=== PATIENT | female | born 1980 | race Caucasian/White ===

== ENCOUNTER → 2017-07-30 | Outpatient (CLI) | payer BC ==
[2017-07-30 07:36] LABS: Basophils % (A) 1 %; Eosinophils # (A) 0.1 k/uL (0-0.7); Eosinophils % (A) 2 %; HCT 47.4 % (34.0-46.0); HGB 15.1 gm/dL (11.4-16.0); Lymphocytes # (A) 2.7 k/uL (1.0-4.8); Lymphocytes % (A) 42 %; MCH 29.3 pg (25.0-35.0); MCHC 31.8 g/dL (31.0-37.0); MCV 92.1 fL (80.0-100.0); Mean Platelet Volume 7.8; Monocytes # (A) 0.5 k/uL (0-1.0); Monocytes % (A) 8 %; Neutrophils # (A) 2.9 k/uL (1.3-7.7); Neutrophils % (A) 46 %; Platelet Count 182 k/uL (150-450); RBC 5.14 m/uL (3.80-5.40); RDW 14.8 % (11.5-15.5); WBC 6.3 k/uL (3.8-10.6)
[2017-07-30 07:50] LABS: ALT 26 U/L (9-52); AST 13 U/L (14-36); Albumin 4.4 g/dL (3.5-5.0); Alkaline Phosphatase 39 U/L (38-126); Anion Gap 13 mmol/L; Bilirubin, Delta 0.2 mg/dL (0.0-0.2); Bilirubin,Unconjugated 0.2 mg/dL (0.0-1.1); Blood Urea Nitrogen 10 mg/dL (7-17); Calcium 10.6 mg/dL (8.4-10.2); Carbon Dioxide 24 mmol/L (22-30); Chloride 104 mmol/L (98-107); Cholesterol 232 mg/dL (<200); Glucose 98 mg/dL (74-99); HDL Cholesterol 66 mg/dL (40-60); LDL Cholesterol,Calculated 141 mg/dL (0-99); Potassium 4.3 mmol/L (3.5-5.1); Sodium 141 mmol/L (137-145); Total Bilirubin 0.4 mg/dL (0.2-1.3); Total Protein 7.2 g/dL (6.3-8.2); Triglycerides 127 mg/dL (<150)
== END | disposition home or self-care (01) ==
LOC: LABWHC1 06:40
PROVIDERS: ATTEND Physical Medicine & Rehabilitation
DX: M81.0 Age-related osteoporosis without current pathological fracture (principal); E78.5 Hyperlipidemia, unspecified; R56.9 Unspecified convulsions
CPT/HCPCS: 36415; 80053; 80061; 82248; 82306; 84443; 85025

== ENCOUNTER → 2017-12-26 | Outpatient (CLI) | payer BC ==
--- NOTE | 2017-12-27 14:00 | MM ---
Reason for exam: screening (asymptomatic). Last mammogram was performed 2 years and 1 month ago. History: Patient is nulliparous. Family history of breast cancer in paternal aunt at age 40. Took hormonal contraceptives for 10 years. Physical Findings: A clinical breast exam by your physician is recommended on an annual basis and results should be correlated with mammographic findings. MG Screening Mammo w CAD Bilateral CC and MLO view(s) were taken. Prior study comparison: December 03, 2015, bilateral MG work up mamm w CAD BILAT. November 23, 2015, bilateral MG screening mammo w CAD. The breast tissue is heterogeneously dense. This may lower the sensitivity of mammography. No significant changes when compared with prior studies. ASSESSMENT: Benign, BI-RAD 2 RECOMMENDATION: Routine screening mammogram of both breasts in 1 year.
== END | disposition home or self-care (01) ==
LOC: RADMAMWWP 13:41
PROVIDERS: ATTEND Obstetrics & Gynecology
DX: Z12.31 Encounter for screening mammogram for malignant neoplasm of breast (principal)
CPT/HCPCS: 77067

== ENCOUNTER → 2019-01-31 | Outpatient (CLI) | payer BC ==
--- NOTE | 2019-02-04 13:58 | MM ---
Reason for exam: screening (asymptomatic). Last mammogram was performed 1 year and 1 month ago. History: Patient is postmenopausal and is nulliparous. Family history of breast cancer in paternal aunt at age 40. Took hormonal contraceptives for 10 years. MG Screening Mammo w CAD Bilateral CC and MLO view(s) were taken. Prior study comparison: December 26, 2017, bilateral MG screening mammo w CAD. December 03, 2015, bilateral MG work up mamm w CAD BILAT. There are scattered fibroglandular densities. There is an Architectural distortion in the right breast middle position 7-8 cm from the nipple seen in the MLO view. Finding is new when compared to prior studies. ASSESSMENT: Incomplete: need additional imaging evaluation, BI-RAD 0 RECOMMENDATION: Special view mammogram of the left breast. [facility] will attempt to contact patient to return for supplemental views.
== END | disposition home or self-care (01) ==
LOC: RADMAMWWP 12:17
PROVIDERS: ATTEND Obstetrics & Gynecology
DX: Z12.31 Encounter for screening mammogram for malignant neoplasm of breast (principal); Z80.3 Family history of malignant neoplasm of breast
CPT/HCPCS: 77067

== ENCOUNTER → 2019-02-13 | Outpatient (CLI) | payer BC ==
--- NOTE | 2019-02-13 11:38 | MM ---
Reason for exam: additional evaluation requested from abnormal screening. Last mammogram was performed less than 1 month ago. History: Patient is nulliparous. Family history of breast cancer in paternal aunt at age 40. Took hormonal contraceptives for 10 years. Physical Findings: Nurse did not find any significant physical abnormalities on exam. MG Work Up Mamm w CAD RT LM and spot compression MLO view(s) were taken of the right breast. Prior study comparison: January 31, 2019, bilateral MG screening mammo w CAD. December 26, 2017, bilateral MG screening mammo w CAD. The breast tissue is heterogeneously dense. This may lower the sensitivity of mammography. No distinct lesion persists. These results were verbally communicated with the patient and result sheet given to the patient on 02/13/19. ASSESSMENT: Negative, BI-RAD 1 RECOMMENDATION: Return to routine screening mammogram schedule for both breasts.
== END | disposition home or self-care (01) ==
LOC: RADMAMWWP 10:18
PROVIDERS: ATTEND Obstetrics & Gynecology
DX: R92.8 Other abnormal and inconclusive findings on diagnostic imaging of breast (principal)
CPT/HCPCS: 77065

== ENCOUNTER → 2020-03-16 | Outpatient (CLI) | payer BC ==
--- NOTE | 2020-03-17 10:01 | MM ---
Reason for exam: screening (asymptomatic). Last mammogram was performed 1 year and 1 month ago. History: Patient is nulliparous. Family history of breast cancer in paternal aunt at age 40. Took hormonal contraceptives for 10 years. Physical Findings: A clinical breast exam by your physician is recommended on an annual basis and results should be correlated with mammographic findings. MG Screening Mammo w CAD Bilateral CC and MLO view(s) were taken. Prior study comparison: February 13, 2019, right breast MG work up mamm w CAD RT. January 31, 2019, bilateral MG screening mammo w CAD. The breast tissue is heterogeneously dense. This may lower the sensitivity of mammography. No significant changes when compared with prior studies. ASSESSMENT: Benign, BI-RAD 2 RECOMMENDATION: Routine screening mammogram of both breasts in 1 year.
== END | disposition home or self-care (01) ==
LOC: RADMAMWWP 07:58
PROVIDERS: ATTEND Obstetrics & Gynecology
DX: Z12.31 Encounter for screening mammogram for malignant neoplasm of breast (principal); Z80.3 Family history of malignant neoplasm of breast
CPT/HCPCS: 77067

== ENCOUNTER → 2020-06-25 | Outpatient (CLI) | payer BC ==
--- NOTE | 2020-06-30 11:36 | HM ---
HOLTER MONITOR REPORT A 24 hour DCG report. The patient in her diary did not indicate any symptoms. Predominant rhythm appears to be sinus with a heart rate ranging from 58 to 120 beats per minute with average heart rate of 84 beats per minute. Rare isolated PACs and PVCs were noted. There was a lot of artifact. There was no evidence of any significant bradyarrhythmia noted. FINAL IMPRESSION: Predominant sinus rhythm. No symptoms are reported. Rare PACs and PVCs. No significant tachy or bradyarrhythmia. Unremarkable DCG. MMODL / IJN: [id number] /
== END | disposition home or self-care (01) ==
LOC: RADECHMAIN 12:05
PROVIDERS: ATTEND Family Medicine
DX: I49.1 Atrial premature depolarization (principal); I49.3 Ventricular premature depolarization
CPT/HCPCS: 93225; 93226

== ENCOUNTER → 2021-05-30 | Outpatient (CLI) | payer BC ==
--- NOTE | 2021-05-31 14:17 | MM ---
Reason for exam: screening (asymptomatic). Last mammogram was performed 1 year and 2 months ago. History: Patient is nulliparous. Family history of breast cancer in paternal aunt at age 40. Took hormonal contraceptives for 10 years. Physical Findings: A clinical breast exam by your physician is recommended on an annual basis and results should be correlated with mammographic findings. MG Screening Mammo w CAD Bilateral CC and MLO view(s) were taken. Prior study comparison: March 16, 2020, bilateral MG screening mammo w CAD. February 13, 2019, right breast MG work up mamm w CAD RT. The breast tissue is heterogeneously dense. This may lower the sensitivity of mammography. There is chronic nodularity in the left breast. There is no discrete abnormality. ASSESSMENT: Negative, BI-RAD 1 RECOMMENDATION: Routine screening mammogram of both breasts in 1 year.
== END | disposition home or self-care (01) ==
LOC: RADMAMWWP 10:01
PROVIDERS: ATTEND Obstetrics & Gynecology
DX: Z12.31 Encounter for screening mammogram for malignant neoplasm of breast (principal); Z80.3 Family history of malignant neoplasm of breast
CPT/HCPCS: 77067

== ENCOUNTER 2022-03-18 07:53 | Emergency (ER) | payer BC ==
[2022-03-18 07:59] VITALS: BP 158/100; PULSE 107; RESP 20; TEMP 97.5
--- NOTE | 2022-03-18 08:21 | XR ---
EXAMINATION TYPE: XR hand complete LT DATE OF EXAM: 03/18/2022 8:08 AM INDICATION: Patient age:Female; 41 years old; Reason for study: Injury; COMPARISON: None TECHNIQUE: Frontal, lateral and oblique views of the left hand were obtained. FINDINGS: Normal alignment of the visualized joints. No acute osseous pathology is identified. No e vidence of soft tissue swelling. IMPRESSION: No acute osseous pathology.
--- NOTE | 2022-03-18 08:33 | ED ---
General Adult HPI - General Stated complaint: Lt Hand Injury Time Seen by Provider: 03/18/22 07:55 Source: patient, RN notes reviewed Mode of arrival: ambulatory Limitations: no limitations - History of Present Illness Initial comments: 41-year-old female presents emergency Department chief complaint of left hand injury. Patient states she tripped and fell going up some steps yesterday. Patient has bruising over her fifth digit in the medial aspect of her hand. Patient is right-hand dominant no head injury no loss conscious to complaints. - Related Data Home Medications Medication Instructions Recorded Confirmed Divalproex [Depakote] 500 mg PO AC-BRKFST 12/24/14 07/25/15 Divalproex [Depakote] 750 mg PO HS 12/24/14 07/25/15 Lansoprazole [Prevacid] 15 mg PO DAILY 12/24/14 07/25/15 levETIRAcetam [Keppra] 1,500 mg PO Q12HR 12/24/14 07/25/15 oxyCODONE HCL [OxyIR] 2.5 mg PO Q4H PRN 12/24/14 07/25/15 valACYclovir HCL [Valtrex] 500 mg PO DAILY 12/24/14 07/25/15 ALPRAZolam [Xanax] 0.5 mg PO BID 07/25/15 07/25/15 Albuterol Inhaler [Ventolin Hfa 2 puff INHALATION Q4H PRN 07/25/15 07/25/15 Inhaler] FLUoxetine HCL [PROzac] 20 mg PO DAILY 07/25/15 07/25/15 Lactobacillus Acidophilus 1 tab PO BID 07/25/15 07/25/15 [Acidophilus] Melatonin 6 mg PO HS 07/25/15 07/25/15 Allergies Allergy/AdvReac Type Severity Reaction Status Date / Time amitriptyline Allergy Unknown Verified 03/18/22 07:59 meperidine HCl [From Demerol] Allergy Unknown Verified 03/18/22 07:59 Penicillins Allergy Unknown Verified 03/18/22 07:59 vancomycin Allergy Rash/Hives Verified 03/18/22 07:59 acetaminophen [From Tylenol] AdvReac Unknown Verified 03/18/22 07:59 adhesive tape AdvReac Rash/Hives Verified 03/18/22 07:59 ibuprofen [From Motrin] AdvReac Nausea & Verified 03/18/22 07:59 Vomiting lactose AdvReac Nausea & Verified 03/18/22 07:59 Vomiting & Diarrhea Review of Systems ROS Statement: Those systems with pertinent positive or pertinent negative responses have been documented in the HPI. ROS Other: All systems not noted in ROS Statement are negative. Past Medical History Past Medical History: Asthma, Deep Vein Thrombosis (DVT), Osteoarthritis (OA), Seizure Disorder Additional Past Medical History / Comment(s): Arthritis, gastroparesis, tramatic brain injury, interstitial cystitis History of Any Multi-Drug Resistant Organisms: None Reported Past Surgical History: Orthopedic Surgery, Tubal Ligation, Uterine Ablation Additional Past Surgical History / Comment(s): erika filter, multiple ortho surgeries: bilateral knee, right ankle, right elbow, brain, jaw, diaphragm, pelvis, tens unit for bladder Past Psychological History: No Psychological Hx Reported Past Alcohol Use History: None Reported Past Drug Use History: Marijuana General Exam General appearance: alert, in no apparent distress Head exam: Present: atraumatic, normocephalic, normal inspection Eye exam: Present: normal appearance, PERRL, EOMI. Absent: scleral icterus, conjunctival injection, periorbital swelling ENT exam: Present: normal exam, mucous membranes moist Respiratory exam: Present: normal lung sounds bilaterally. Absent: respiratory distress, wheezes, rales, rhonchi, stridor Cardiovascular Exam: Present: regular rate, normal rhythm, normal heart sounds. Absent: systolic murmur, diastolic murmur, rubs, gallop, clicks Extremities exam: Present: other (Right hand there is some ecchymosis on fifth digit and with fifth metacarpal region tenderness palpation moderate swelling no wrist tenderness) Course Vital Signs 03/18/22 07:57 Temperature 97.5 F L Pulse Rate 107 H Respiratory 20 Rate Blood Pressure 158/100 O2 Sat by Pulse 96 Oximetry Medical Decision Making - Medical Decision Making X-ray was reviewed by me which shows proximal phalanx fracture of the left fifth digit patient is placed in a finger splint and will follow-up with orthopedics as needed. Disposition Clinical Impression: Fracture of proximal phalanx of left hand Disposition: HOME SELF-CARE Condition: Stable Instructions (If sedation given, give patient instructions): Finger Fracture (ED) Additional Instructions: Please return to the Emergency Department if symptoms worsen or any other concerns. Is patient prescribed a controlled substance at d/c from ED?: No Referrals: Rajat Nicolas MD [Primary Care Provider] - 1-2 days Migel Morris DO [Doctor of Osteopathic Medicine] - 1-2 days Time of Disposition: 08:33
== END 2022-03-18 08:55 | disposition home or self-care (01) ==
LOC: EC 07:53
DX: S62.617A Displaced fracture of proximal phalanx of left little finger, initial encounter for closed fracture (principal); J45.909 Unspecified asthma, uncomplicated; Z86.718 Personal history of other venous thrombosis and embolism; Z88.0 Allergy status to penicillin; Z91.048 Other nonmedicinal substance allergy status; Z88.8 Allergy status to other drugs, medicaments and biological substances; Z88.1 Allergy status to other antibiotic agents; Z79.51 Long term (current) use of inhaled steroids; Z79.899 Other long term (current) drug therapy; W01.0XXA Fall on same level from slipping, tripping and stumbling without subsequent striking against object, initial encounter
CPT/HCPCS: 29125; 99284

== ENCOUNTER → 2022-06-21 | Outpatient (CLI) | payer BC ==
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
== END ==
LOC: NEUROMAIN 08:01
PROVIDERS: ATTEND Family Medicine
DX: G40.909 Epilepsy, unspecified, not intractable, without status epilepticus (principal); Z88.0 Allergy status to penicillin; Z88.6 Allergy status to analgesic agent; Z91.048 Other nonmedicinal substance allergy status; Z88.1 Allergy status to other antibiotic agents; Z91.011 Allergy to milk products; Z88.8 Allergy status to other drugs, medicaments and biological substances
CPT/HCPCS: 95816

== ENCOUNTER 2022-06-30 12:15 | Emergency (ER) | payer BC ==
[2022-06-30 12:23] VITALS: TEMP 98
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
--- NOTE | 2022-06-30 13:34 | US ---
EXAMINATION TYPE: US venous doppler duplex LE BI DATE OF EXAM: 06/30/2022 1:25 PM COMPARISON: NONE CLINICAL HISTORY: Peripheral edema DVT suspected. bilateral leg swelling for 2 months, no h/o dvt SIDE PERFORMED: Bilateral TECHNIQUE: The lower extremity deep venous system is examined utilizing real time linear array sonog chris with graded compression, doppler sonography and color-flow sonography. VESSELS IMAGED: Common Femoral Vein Deep Femoral Vein Greater Saphenous Vein * Femoral Vein Popliteal Vein Small Saphenous Vein * Proximal Calf Veins (* superficial vessels) Right Leg: Negative for DVT Left Leg: Negative for DVT IMPRESSION: No evidence for DVT
[2022-06-30 14:51] VITALS: BP 122/89; PULSE 89; RESP 18
== END 2022-06-30 14:55 | disposition home or self-care (01) ==
LOC: EC 12:15
DX: R22.42 Localized swelling, mass and lump, left lower limb (principal); J45.909 Unspecified asthma, uncomplicated; Z86.718 Personal history of other venous thrombosis and embolism; E78.5 Hyperlipidemia, unspecified; M19.90 Unspecified osteoarthritis, unspecified site; G40.909 Epilepsy, unspecified, not intractable, without status epilepticus; F12.90 Cannabis use, unspecified, uncomplicated; Z88.8 Allergy status to other drugs, medicaments and biological substances; Z88.0 Allergy status to penicillin; Z88.1 Allergy status to other antibiotic agents; Z91.011 Allergy to milk products; Z88.5 Allergy status to narcotic agent; Z79.899 Other long term (current) drug therapy
CPT/HCPCS: 93970; 99284

== ENCOUNTER → 2022-07-04 | Outpatient (CLI) | payer BC ==
--- NOTE | 2022-07-05 10:29 | MM ---
Reason for Exam: Screening (asymptomatic). Last mammogram was performed 1 year(s) and 1 month(s) ago. Patient History: Menarche at age 10. Patient has no children. Patient used Hormonal Contraceptives for 10 years. Paternal aunt had breast cancer, age 40. Risk Values: Minnie 5 year model risk: 0.8%. NCI Lifetime model risk: 10.8%. Prior Study Comparison: 02/13/2019 Right Diagnostic Mammogram, [facility]. 03/16/2020 Bilateral Screening Mammogram, [facility]. 05/30/2021 Bilateral Screening Mammogram, [facility]. Tissue Density: There are scattered fibroglandular densities. Findings: Analyzed By CAD. Pattern appears symmetrical and stable. No significant interval change is evident. No suspicious groups of microcalcifications, spiculated or lobular masses, architectural distortion or other secondary signs of malignancy are mammographically apparent. Overall Assessment: Benign, BI-RAD 2 Management: Screening Mammogram of both breasts in 1 year. A negative mammogram report should not preclude additional follow up of suspicious palpable abnormalities. Patient should continue monthly self breast exam. A clinical breast exam by your physician is recommended on an annual basis and results should be correlated with mammographic findings. Electronically signed and approved by: Raz Campbell D.O. Radiologis
== END | disposition home or self-care (01) ==
LOC: RADMAMWWP 15:09
PROVIDERS: ATTEND Obstetrics & Gynecology
DX: Z12.31 Encounter for screening mammogram for malignant neoplasm of breast (principal); Z80.3 Family history of malignant neoplasm of breast
CPT/HCPCS: 77067

== ENCOUNTER → 2022-11-30 | Outpatient (CLI) | payer MEDICARE, OTHER ==
[2022-11-30 14:50] LABS: Basophils # (A) 0.1 k/uL (0-0.2); Basophils % (A) 1 %; Eosinophils # (A) 0.1 k/uL (0-0.7); Eosinophils % (A) 1 %; HCT 44.6 % (34.0-46.0); HGB 14.9 gm/dL (11.4-16.0); Lymphocytes % (A) 29 %; MCH 30.8 pg (25.0-35.0); MCHC 33.5 g/dL (31.0-37.0); MCV 92.1 fL (80.0-100.0); Mean Platelet Volume 7.9; Monocytes # (A) 0.4 k/uL (0-1.0); Monocytes % (A) 4 %; Neutrophils # (A) 6.6 k/uL (1.3-7.7); Neutrophils % (A) 64 %; Platelet Count 244 k/uL (150-450); RBC 4.84 m/uL (3.80-5.40); RDW 13.2 % (11.5-15.5); WBC 10.2 k/uL (3.8-10.6)
[2022-11-30 15:23] LABS: Total Eosinophil Count 92 #EOS/uL (150-300)
[2022-12-01 03:55] LABS: Alternaria alternata IgE <0.10 kU/L; Aspergillus fumagatus IgE <0.10 kU/L; Birch IgE <0.10 kU/L; Cladosporian herbarum IgE <0.10 kU/L; Cockroach IgE <0.10 kU/L; Elm IgE <0.10 kU/L; Maple (Box Elder) IgE <0.10 kU/L; Oak IgE <0.10 kU/L; Ragweed,Common IgE <0.10 kU/L; Red Top (Bentgrass) IgE <0.10 kU/L
[2022-12-01 03:56] LABS: Cat Epith & Dander IgE <0.10 kU/L; Dermato. farinae IgE 0.12 kU/L; Dog Dander IgE <0.10 kU/L
== END | disposition home or self-care (01) ==
LOC: LABWHC1 14:04
PROVIDERS: ATTEND Internal Medicine Critical Care Medicine
DX: Z00.00 Encounter for general adult medical examination without abnormal findings (principal); R05.3 Chronic cough
CPT/HCPCS: 36415; 82785; 85008; 85025; 86003

== ENCOUNTER → 2023-05-23 | Outpatient (CLI) | payer MEDICARE ==
--- NOTE | 2023-05-23 16:08 | XR ---
EXAMINATION TYPE: XR sacrum coccyx DATE OF EXAM: 05/23/2023 COMPARISON: 12/24/2014 HISTORY: Pain Three views are submitted. Stimulator device and lead are noted. Previous surgery involving the pel vis and left iliac bone with chronic appearing deformity of the left pubic ramus and anterior column acetabulum. SI joints are patent. Sacral foramen are symmetric. There is a calcification in the pelvi s which are likely related to phleboliths. There is an additional more linear calcification which cou ld be related to right UVJ calculus. Measures 2 mm in diameter. There is a deformity of the sacrococc ygeal region. IMPRESSION: 1. Age-indeterminate on the sacrococcygeal junction. If point tender correlate with CT scan. 2. Possible right UVJ 2 mm calculus..
== END | disposition home or self-care (01) ==
LOC: RADXRMAIN 14:59
PROVIDERS: ATTEND Urology
DX: N39.3 Stress incontinence (female) (male) (principal)
CPT/HCPCS: 72220

== ENCOUNTER → 2023-11-26 | Outpatient (CLI) | payer MEDICARE ==
--- NOTE | 2023-11-30 08:23 | MM ---
Reason for Exam: Screening (asymptomatic). Last mammogram was performed 1 year(s) and 5 month(s) ago. Patient History: Menarche at age 10. Patient has no children. Patient used Hormonal Contraceptives for 10 years. Paternal aunt had breast cancer, age 40. Risk Values: Minnie 5 year model risk: 0.9%. NCI Lifetime model risk: 10.7%. Prior Study Comparison: 03/16/2020 Bilateral Screening Mammogram, [facility]. 05/30/2021 Bilateral Screening Mammogram, [facility]. 07/04/2022 Bilateral MG screening mammo w CAD, [facility]. Tissue Density: The breasts are extremely dense, which lowers the sensitivity of mammography. Findings: Analyzed By CAD. Right breast: Stable fibroglandular tissue. There is no suspicious group of microcalcifications or new suspicious mass. Left breast: There is no suspicious group of microcalcifications or new suspicious mass. Overall Assessment: Benign, BI-RAD 2 Management: Screening Mammogram of both breasts in [address] [facility] will attempt to contact patient to return for supplemental views and ultrasound if indicated. Patient should continue monthly self-breast exams. A clinical breast exam by your physician is recommended on an annual basis. This exam should not preclude additional follow-up of suspicious palpable abnormalities. Note on Minnie scores and lifetime risk: 1. A Minnie score greater than 3% is considered moderate risk. If this is the case, consider specialist referral to assess eligibility for a risk reducing agent. 2. If overall lifetime risk for the development of breast cancer is 20% or higher, the patient may qualify for future screening with alternating mammogram and breast MRI. Electronically signed and approved by: Pelon Robert DO
== END | disposition home or self-care (01) ==
LOC: RADMAMWWP 10:37
PROVIDERS: ATTEND Family Medicine
DX: Z12.31 Encounter for screening mammogram for malignant neoplasm of breast (principal); Z80.3 Family history of malignant neoplasm of breast
CPT/HCPCS: 77067

== ENCOUNTER → 2024-06-26 | Outpatient (CLI) | payer MEDICARE ==
[2024-06-26 15:01] LABS: Basophils # (A) 0.03 X 10*3/uL (0.00-0.10); Basophils % (A) 0.5 %; Eosinophils % (A) 1.8 %; HCT 42.9 % (37.2-46.3); HGB 14.4 g/dL (12.0-15.0); Lymphocytes % (A) 39.7 %; MCH 29.9 pg (27.0-32.0); MCHC 33.6 g/dL (32.0-37.0); Mean Platelet Volume 10.7 FL (9.5-12.2); Monocytes # (A) 0.39 X 10*3/uL (0.20-1.00); NRBC Per 100 WBC 0 X 10*3/uL (0.00-0.01); Neutrophils % (A) 50.6 %; Platelet Count 215 X 10*3/uL (140-440); RBC 4.82 X 10*6/uL (4.10-5.20); RDW 12.6 % (11.5-14.5); WBC 5.54 X 10*3/uL (4.50-10.00)
[2024-06-26 17:30] LABS: ALT 20 U/L (8-44); AST 16 U/L (13-35); Alkaline Phosphatase 56 U/L (41-126); BUN/Creat Ratio 9.86 Ratio (12.00-20.00); Blood Urea Nitrogen 6.9 mg/dL (9.0-27.0); Calcium 9.6 mg/dL (8.7-10.3); Carbon Dioxide 24.3 mmol/L (21.6-31.8); Chloride 104 mmol/L (96-109); Glucose 102 mg/dL (70-110); Potassium 4.4 mmol/L (3.5-5.5); Sodium 140 mmol/L (135-145); Total Bilirubin 0.4 mg/dL (0.3-1.2); Total Protein 6.5 g/dL (6.2-8.2)
[2024-06-26 17:31] LABS: Albumin 4.3 g/dL (3.8-4.9); Albumin/Globulin Ratio 1.95 Ratio (1.60-3.17); Globulin 2.2 g/dL (1.6-3.3)
[2024-06-26 21:54] LABS: Valproic Acid (Depakene) <2.8 UG/ML (50.0-100.0)
== END | disposition home or self-care (01) ==
LOC: LABWHC1 09:44
PROVIDERS: ATTEND Physical Medicine & Rehabilitation
DX: E11.9 Type 2 diabetes mellitus without complications (principal); E55.9 Vitamin D deficiency, unspecified; E03.9 Hypothyroidism, unspecified; R56.9 Unspecified convulsions; Z79.899 Other long term (current) drug therapy
CPT/HCPCS: 36415; 80053; 80164; 80177; 82306; 83036; 84443; 85025

== ENCOUNTER 2025-01-23 11:41 | Day surgery (SDC) | payer MEDICARE ==
[2025-01-22 10:52] VITALS: BMI 42.9
[2025-01-23 13:38] VITALS: TEMP 97.5
[2025-01-23] MEDS: IV FLUID CONTINUATION 1,000 ML IV ONE ×2 (13:44→15:01)
[2025-01-23] MEDS: LACTATED RINGERS 1,000 ML IV SCH (13:44)
[2025-01-23] MEDS: SCOPOLAMINE 1 MG/72 HR PATCH TRANSDERM STA (13:52)
[2025-01-23] MEDS ORDERED: ONDANSETRON 4 MG/2 ML VIAL ONE (15:02)
[2025-01-23] MEDS ORDERED: PROPOFOL 10 MG/ML 20 ML VIAL IV ONE (15:02)
[2025-01-23] MEDS ORDERED: LIDOCAINE 2% (PF) 20 MG/ML 5 ML VIAL ONE (15:02)
--- NOTE | 2025-01-23 15:20 | P.PCN ---
Date of Procedure: 01/23/25 Procedure(s) Performed: BRIEF HISTORY: Patient is a 44-year-old pleasant white female scheduled for an elective colonoscopy as a part of screening for colon cancer. PROCEDURE PERFORMED: Colonoscopy with cold snare polypectomy. PREOPERATIVE DIAGNOSIS: Screening for colon cancer. IV sedation per Anesthesia. PROCEDURE: After informed consent was obtained, the patient, was brought into the endoscopy unit. IV sedation was administered by Anesthesia under continuous monitoring. Digital rectal examination was normal. Initially the Olympus CF-160 flexible video colonoscope was then inserted in the rectum, gradually advanced into the cecum without any difficulty. Careful examination was performed as the scope was gradually being withdrawn. Ileocecal valve and the appendiceal orifice were visualized and appeared normal. Prep was excellent. Mucosa of the cecum, appeared normal. In the ascending colon there were 4 polyps measuring between 3 mm to 6 mm in size removed by cold snare polypectomy. This is a ascending colon, transverse colon, descending colon, sigmoid colon, and rectum appeared no rmal. Retroflexion was performed in the rectum and no lesions were seen. The patient tolerated the procedure well. IMPRESSION: 3 mm x 3 and 6 mm ascending colon polyp status post cold snare polypectomy Rest of the colon appeared normal RECOMMENDATIONS: Findings of this examination were discussed with the patient as well as her family she was advised to follow-up with the biopsy results. If the biopsy was adenoma she can have repeat colonoscopy in 5 years..
[2025-01-23 15:24] VITALS: RESP 18
[2025-01-23 15:54] VITALS: BP 129/77; PULSE 92
== END 2025-01-23 15:56 ==
LOC: ORWHC2ENDO 11:41
PROVIDERS: ATTEND Internal Medicine Gastroenterology
DX: Z12.11 Encounter for screening for malignant neoplasm of colon (principal); D12.2 Benign neoplasm of ascending colon; E78.5 Hyperlipidemia, unspecified; J45.909 Unspecified asthma, uncomplicated; F41.9 Anxiety disorder, unspecified; F32.A Depression, unspecified; F43.10 Post-traumatic stress disorder, unspecified; M19.90 Unspecified osteoarthritis, unspecified site; G40.909 Epilepsy, unspecified, not intractable, without status epilepticus; Z88.0 Allergy status to penicillin; Z91.040 Latex allergy status; Z88.8 Allergy status to other drugs, medicaments and biological substances; Z88.6 Allergy status to analgesic agent; Z88.1 Allergy status to other antibiotic agents; Z98.890 Other specified postprocedural states
CPT/HCPCS: 88305; 84703; 45385; J2405; J2704; J2003